=== PATIENT | female | born 1975 | race Caucasian/White ===

== ENCOUNTER 2017-05-30 17:58 | Emergency (ER) | payer OTHER ==
[2017-05-30 18:16] VITALS: BP 108/64; PULSE 84; RESP 18; TEMP 98.2
[2017-05-30] MEDS ORDERED: DIPH,PERTUS(ACELL)TETVAC-LF 0.5 ML VIAL IM ONE (19:46)
--- NOTE | 2017-05-30 20:45 | ED ---
Wound/Laceration HPI - General Chief Complaint: Wound/Laceration Stated Complaint: Finger Laceration Time Seen by Provider: 05/30/17 19:31 Source: patient, RN notes reviewed Mode of arrival: ambulatory Limitations: no limitations - History of Present Illness Initial Comments: This is a 41-year-old female who presents to the emergency department with chief complaint of left index finger laceration. Patient states that prior to arrival she was cutting potatoes with a paring knife when she slipped and lacerated her left index finger. Patient states that she is in mild pain. There was minimal bleeding. Patient states she is unsure if she is up-to-date with her tetanus vaccination. Denies fever, chills, chest pain, shortness of breath, abdominal pain, nausea or vomiting, constipation or diarrhea, dysuria or hematuria, numbness or tingling, headache or vision changes. - Related Data Home Medications Medication Instructions Recorded Confirmed No Known Home Medications [No 05/30/17 05/30/17 Known Home Medications] Allergies Allergy/AdvReac Type Severity Reaction Status Date / Time latex Allergy Rash/Hives Verified 05/30/17 18:14 Review of Systems ROS Statement: Those systems with pertinent positive or pertinent negative responses have been documented in the HPI. ROS Other: All systems not noted in ROS Statement are negative. Past Medical History Past Medical History: No Reported History History of Any Multi-Drug Resistant Organisms: None Reported Past Surgical History: No Surgical Hx Reported Past Psychological History: No Psychological Hx Reported Smoking Status: Current every day smoker Past Alcohol Use History: Occasional Past Drug Use History: None Reported General Exam - General Exam Comments Initial Comments: General: Awake and alert, well-developed; in no apparent distress. HEENT: Head atraumatic, normocephalic. Pupils are equal, round and reactive to light. Extraocular movements intact. Neck: Supple. Normal ROM. Cardiovascular: Regular rate and rhythm. No murmurs, rubs or gallops. Chest symmetrical. Respiratory: Lungs clear to auscultation bilaterally. No wheezes, rales or rhonchi. Normal respiratory effort with no use of accessory muscles. Skin: [place], warm and dry without rashes or lesions. 2 cm crescent-shaped laceration at distal tip of left index finger. Sensation is intact. Pulses are 2+ equal and palpable bilaterally. Active range of motion is intact. Neurological: Alert and oriented x3. CN II-XII grossly intact. Speech is fluent and answers are appropriate. No focal neuro deficits. Psychiatric: Normal mood and affect. No overt signs of depression or anxiety noted. Limitations: no limitations Course Vital Signs 05/30/17 18:15 Temperature 98.2 F Pulse Rate 84 Respiratory 18 Rate Blood Pressure 108/64 O2 Sat by Pulse 98 Oximetry Procedures - Laceration Laceration #1 Consent Obtained: verbal consent Indication: laceration Site: hand (distal left index finger) Size (cm): 2 Description: flap Depth: simple, single layer Anesthetic Used: lidocaine 1% Anesthesia Technique: nerve block (digitial nerve block) Amount (mls): 3 Pre-repair: wound explored, irrigated extensively, deep structures intact Type of Sutures: nylon Size of Sutures: 4-0 Number of Sutures: 5 Technique: simple, interrupted Complications: bleeding (moderate amount of bleeding. controlled once sutures were in place. ) Patient Tolerated Procedure: well, no complications Medical Decision Making - Medical Decision Making This is a 41-year-old female who presents to the emergency department with chief complaint of left index finger laceration. Laceration was irrigated extensively and 5 sutures were placed. Patient tolerated the procedure well. She was given an up-to-date tetanus booster in the ED. Patient is in no acute distress at this time and will be discharged home with recommendation to have sutures removed in 10-14 days here at the ED or with her primary care provider. Patient is in agreement with the plan and voices understanding. All questions were answered. Disposition Clinical Impression: Laceration of left index finger Disposition: HOME SELF-CARE Condition: Good Instructions: Laceration (ED) Additional Instructions: Please have sutures removed here at the ED or with her primary care provider in 10-14 days. Please monitor for any signs of infection including redness, warmth or increased tenderness. May take Ibuprofen or Tylenol as needed for pain. Please follow up with primary care provider within 1-2 days. Return to emergency department if symptoms should worsen or any concerns arise. Referrals: Garo Mccartney MD [Primary Care Provider] - 1-2 days Time of Disposition: 20:29
== END 2017-05-30 20:42 | disposition home or self-care (01) ==
LOC: EC 17:58
DX: S61.211A Laceration without foreign body of left index finger without damage to nail, initial encounter (principal); F17.200 Nicotine dependence, unspecified, uncomplicated; Z91.040 Latex allergy status; Z23 Encounter for immunization; W26.0XXA Contact with knife, initial encounter; Y93.89 Activity, other specified
CPT/HCPCS: 12001; 90471; 90715; 99282

== ENCOUNTER 2018-08-12 05:02 | Emergency (ER) | payer OTHER ==
[2018-08-12 05:09] VITALS: BP 131/85; PULSE 77; RESP 18; TEMP 98.2
[2018-08-12] MEDS ORDERED: PENICILLIN V POTASSIUM 250 MG TAB PO STA (05:15)
--- NOTE | 2018-08-12 05:16 | ED ---
ENT HPI - General Chief complaint: Dental/Oral Stated complaint: Dental Pain Time Seen by Provider: 08/12/18 05:15 Source: patient Mode of arrival: ambulatory Limitations: no limitations - History of Present Illness Initial comments: Adam is a previously healthy 43-year-old female who presents the emergency department today for evaluation of dental pain and swelling. Patient reports she has a history of multiple dental fractures and dental caries, she has had dental infections require dental extraction the past. She reports she woke with Monday morning with swelling and pain in her left upper tooth. She reports that throughout the day the pain has worsened and she knows she needs antibiotics so she came to the ER for evaluation. She denies associated fevers , chills, chest pain or shortness of breath. - Related Data Previous Rx's Medication Instructions Recorded RX: Penicillin V Potassium [Pen 500 mg PO Q6H #28 tablet 08/12/18 Vee K] Allergies Allergy/AdvReac Type Severity Reaction Status Date / Time latex Allergy Rash/Hives Verified 08/12/18 05:09 Review of Systems ROS Statement: Those systems with pertinent positive or pertinent negative responses have been documented in the HPI. ROS Other: All systems not noted in ROS Statement are negative. Past Medical History Past Medical History: No Reported History History of Any Multi-Drug Resistant Organisms: None Reported Past Surgical History: Tubal Ligation Past Psychological History: No Psychological Hx Reported Smoking Status: Current every day smoker Past Alcohol Use History: Occasional Past Drug Use History: None Reported General Exam - General Exam Comments Initial Comments: Physical Exam GENERAL: Patient is well-developed and well-nourished. Patient is nontoxic and well- hydrated and is in no distress. HENT: Swelling of left cheek, poor dentition, mutliple caries and dental fractures No parotid gland swelling or tenderness No cervical lymphadenopathy EYES: PERRL, EOMI PULMONARY: Unlabored respirations. No audible rales rhonchi or wheezing was noted. CARDIOVASCULAR: There is a regular rate and rhythm without any murmurs gallops or rubs. ABDOMEN: Soft and nontender with normal bowel sounds. SKIN: Skin is clear with no lesions or rashes and otherwise unremarkable. : Deferred NEUROLOGIC: Patient is alert and oriented x3. Moving all extremities spontaneously MUSCULOSKELETAL: Normal extremities with adequate strength and full range of motion. No lower extremity swelling or edema. No calf tenderness. PSYCHIATRIC: Normal psychiatric evaluation. Limitations: no limitations Limitations: no limitations Course Vital Signs 08/12/18 05:06 Temperature 98.2 F Pulse Rate 77 Respiratory 18 Rate Blood Pressure 131/85 O2 Sat by Pulse 100 Oximetry Medical Decision Making - Medical Decision Making Patient with poor dentition and multiple dental caries and fractured teeth, presenting with acute swelling and pain around tooth #17. We'll give first dose of antibiotics in the emergency department discharge patient home with penicillin. Return parameters were discussed with questions pertaining care were answered the need for follow-up with waxer operator was discussed and the patient was discharged home in stable condition. Disposition Clinical Impression: Dental caries, Dental abscess, Fracture of tooth Disposition: HOME SELF-CARE Condition: Good Instructions: Dental Abscess (ED), Dental Caries (ED) Prescriptions: RX: Penicillin V Potassium [Pen Vee K] 500 mg PO Q6H #28 tablet Is patient prescribed a controlled substance at d/c from ED?: No Referrals: Garo Mccartney MD [Primary Care Provider] - 1-2 days Time of Disposition: 05:58
== END 2018-08-12 06:02 | disposition home or self-care (01) ==
LOC: EC 05:02
DX: S02.5XXA Fracture of tooth (traumatic), initial encounter for closed fracture (principal); K04.7 Periapical abscess without sinus; K02.9 Dental caries, unspecified; F17.200 Nicotine dependence, unspecified, uncomplicated; Z91.040 Latex allergy status
CPT/HCPCS: 99282

== ENCOUNTER → 2018-11-30 | Outpatient (CLI) | payer OTHER ==
--- NOTE | 2018-12-01 08:49 | US ---
EXAMINATION TYPE: US pelvis complete transvag DATE OF EXAM: 11/30/2018 COMPARISON: NONE CLINICAL HISTORY: 43-year-old female N92.0 frequent menstruation. Pt states heavy menses with large c lots TECHNIQUE: Transabdominal sonographic images of the pelvis were acquired. Transvaginal sonographic i mages were medically necessary to better assess the following anatomy: Uterus, endo, and ovaries Date of LMP: 11/06/2018 FINDINGS: EXAM MEASUREMENTS: Uterus: 9.0 x 4.5 x 5.8cm Endometrial Stripe: 1.0 cm Right Ovary: 4.2 x 3.1 x 3.5 cm Left Ovary: 3.9 x 2.1 x 2.5 cm 1. Uterus: Retroverted. Possible 8mm scar niche along the anterior lower uterine segment at the expected scar site. Nabothian cysts in cervix. There is a heterogeneous ill-defined r ounded area along the anterior uterine fundus which indents into the endometrial stripe. There is ass ociated vascularity. The area measures 2.1 x 1.7 x 2.4 cm 2. Endometrium: wnl 3. Right Ovary: two complex lesions with septations and debris 1)= 2.1 x 1.9 x 2.2 cm 2)= 2.2 x 1. 6 x 2.2 cm. Possible hemorrhagic cysts. 4. Left Ovary: two complex lesions 1)= 1.9 x 2.0 x 1.4 cm 2)= 2.1 x 1.2 x 1.4 cm. Both of these s how extensive internal reticulation suggesting hemorrhagic cysts. 5. Bilateral Adnexa: Small amount of fluid left adnexa adjacent to left ovary 6. Posterior cul-de-sac: wnl IMPRESSION: 1. Retroverted uterus with a possible 8 mm scar niche. 2. Poorly defined 2.4 cm heterogeneous area along the anterior uterine fundus is myometrial and show some encroachment onto the endometrial stripe. Differential considerations include intramural and par tially submucosal fibroid and adenomyoma. Consider female pelvic MRI if indicated. 3. Complex cystic lesions in both ovaries measuring up to 2.2 cm. These show debris and internal reti culations. Hemorrhagic cysts are suspected. Follow-up in 6-8 weeks to reassess. 4. Small amount of left adnexal free fluid adjacent to the ovary.
== END | disposition home or self-care (01) ==
LOC: RADUSWWP 16:10
PROVIDERS: ATTEND Family Medicine
DX: N85.4 Malposition of uterus (principal); N83.291 Other ovarian cyst, right side; N83.292 Other ovarian cyst, left side; D25.9 Leiomyoma of uterus, unspecified; D26.9 Other benign neoplasm of uterus, unspecified
CPT/HCPCS: 76830; 76856

== ENCOUNTER → 2018-12-13 | Outpatient (CLI) | payer OTHER ==
--- NOTE | 2018-12-14 11:50 | MM ---
Reason for exam: screening (asymptomatic). Last mammogram was performed 4 years and 3 months ago. History: Family history of breast cancer in 2 maternal cousins. Physical Findings: A clinical breast exam by your physician is recommended on an annual basis and results should be correlated with mammographic findings. MG Screening Mammo w CAD Bilateral CC and MLO view(s) were taken. Prior study comparison: September 25, 2014, bilateral MG diagnostic mammo w CAD YARED. The breast tissue is heterogeneously dense. This may lower the sensitivity of mammography. Finding: There is an equal density (isodense), indistinct irregular mass in the outer quadrant, middle position of the left breast on CC view. New finding since September 25, 2014. ASSESSMENT: Incomplete: need additional imaging evaluation, BI-RAD 0 RECOMMENDATION: Special view mammogram of the left breast. If lesion persists on supplemental views, image directed ultrasound is recommended. [facility] will attempt to contact patient to return for supplemental views and ultrasound if indicated.
== END | disposition home or self-care (01) ==
LOC: RADMAMWWP 07:14
PROVIDERS: ATTEND Family Medicine
DX: Z12.31 Encounter for screening mammogram for malignant neoplasm of breast (principal)
CPT/HCPCS: 77067

== ENCOUNTER → 2018-12-24 | Outpatient (CLI) | payer OTHER ==
--- NOTE | 2018-12-24 09:53 | MM ---
Reason for exam: additional evaluation requested from abnormal screening. Last mammogram was performed less than 1 month ago. History: Family history of breast cancer in 2 maternal cousins at age 50. Physical Findings: Nurse did not find any significant physical abnormalities on exam. MG 3D Work Up W/Cad LT Spot compression CC, spot compression MLO, and ML view(s) were taken of the left breast. Prior study comparison: December 13, 2018, bilateral MG screening mammo w CAD. September 25, 2014, bilateral MG diagnostic mammo w CAD YARED. The breast tissue is heterogeneously dense. This may lower the sensitivity of mammography. The questioned lateral asymmetric density does not persist. These results were verbally communicated with the patient and result sheet given to the patient on 12/24/18. ASSESSMENT: Negative, BI-RAD 1 RECOMMENDATION: Return to routine screening mammogram schedule for both breasts.
== END | disposition home or self-care (01) ==
LOC: RADMAMWWP 08:58
PROVIDERS: ATTEND Family Medicine
DX: R92.8 Other abnormal and inconclusive findings on diagnostic imaging of breast (principal)
CPT/HCPCS: 77061; 77065

== ENCOUNTER → 2018-12-24 | Outpatient (CLI) | payer OTHER ==
[2018-12-24 10:10] LABS: Basophils % (A) 0 %; Eosinophils # (A) 0.1 k/uL (0-0.7); Eosinophils % (A) 1 %; HCT 45.6 % (34.0-46.0); HGB 14.3 gm/dL (11.4-16.0); Lymphocytes # (A) 1.5 k/uL (1.0-4.8); Lymphocytes % (A) 19 %; MCH 30.5 pg (25.0-35.0); MCHC 31.3 g/dL (31.0-37.0); MCV 97.4 fL (80.0-100.0); Mean Platelet Volume 9.5; Monocytes # (A) 0.4 k/uL (0-1.0); Monocytes % (A) 5 %; Neutrophils # (A) 5.7 k/uL (1.3-7.7); Neutrophils % (A) 74 %; Platelet Count 227 k/uL (150-450); RBC 4.67 m/uL (3.80-5.40); RDW 13.7 % (11.5-15.5); WBC 7.7 k/uL (3.8-10.6)
[2018-12-24 16:10] LABS: Albumin 4.6 g/dL (3.80-4.90); Albumin/Globulin Ratio 2.19 (1.60-3.17); Anion Gap 2.5 mmol/L (4.00-12.00); Calcium 9.4 mg/dL (8.7-10.3); Carbon Dioxide 25.5 mmol/L (21.6-31.8); Globulin 2.1 g/dL (1.6-3.3); Potassium 4.3 mmol/L (3.5-5.5); Total Bilirubin 0.7 mg/dL (0.3-1.2); Total Protein 6.7 g/dL (6.2-8.2)
[2018-12-24 16:22] LABS: Progesterone 0.7 ng/mL
[2018-12-24 19:43] LABS: Hemoglobin A1C 5.5 % (4.0-6.0)
== END ==
LOC: LABWHC1 09:42
PROVIDERS: ATTEND Obstetrics & Gynecology Obstetrics
DX: N92.1 Excessive and frequent menstruation with irregular cycle (principal); R10.2 Pelvic and perineal pain
CPT/HCPCS: 36415; 80053; 82670; 83001; 83036; 84144; 84146; 84443; 85025

== ENCOUNTER 2019-06-14 13:02 | Emergency (ER) | payer OTHER ==
[2019-06-14 13:12] VITALS: RESP 18
[2019-06-14] MEDS ORDERED: KETOROLAC 30 MG/ML 1 ML VIAL IVP STA (13:28)
--- NOTE | 2019-06-14 13:45 | ED ---
Chest Pain HPI - General Chief Complaint: Chest Pain Stated Complaint: Chest pain Time Seen by Provider: 06/14/19 13:14 Source: patient Mode of arrival: wheelchair Limitations: no limitations - History of Present Illness Initial Comments: Patient is a 43-year-old female presenting to emergency Department with complaints of chest pain 2 days. Patient describes the pain as more left sided, intermittent in nature, described as burning/sharp, increases with movement and palpation. She did take some Motrin today which did alleviate some of the pain. Patient states she's never had pain like this before. Patient denies any injuries or trauma to her chest. Patient denies cardiac history. Patient does admit to being a smoker. Takes no daily medications. Patient was recently on a course of antibiotics and steroids for URI. Patient denies fever, chills, nausea, vomiting, diarrhea, shortness of breath. Patient has no other complaints at this time. Upon arrival to ER, vital signs are stable. - Related Data Previous Rx's Medication Instructions Recorded Penicillin V Potassium [Pen Vee K] 500 mg PO Q6H #28 tablet 08/12/18 Allergies Allergy/AdvReac Type Severity Reaction Status Date / Time latex Allergy Rash/Hives Verified 06/14/19 13:08 Review of Systems ROS Statement: Those systems with pertinent positive or pertinent negative responses have been documented in the HPI. ROS Other: All systems not noted in ROS Statement are negative. EKG Findings - EKG Comments: EKG Findings:: Ventricular rate 81, KS interval 156, QTC 420. Normal sinus rhythm. No acute ST segment changes. Past Medical History Past Medical History: No Reported History History of Any Multi-Drug Resistant Organisms: None Reported Past Surgical History: Tubal Ligation Past Psychological History: No Psychological Hx Reported Smoking Status: Current every day smoker Past Alcohol Use History: Occasional Past Drug Use History: None Reported General Exam - General Exam Comments Initial Comments: GENERAL: Well-appearing, well-nourished and in no acute distress. HEAD: Atraumatic, normocephalic. EYES: Pupils equal round and reactive to light, extraocular movements intact, sclera anicteric, conjunctiva are normal. ENT: TMs normal, nares patent, oropharynx clear without exudates. Moist mucous membranes. NECK: Normal range of motion, supple without lymphadenopathy or JVD. LUNGS: Breath sounds clear to auscultation bilaterally and equal. No wheezes rales or rhonchi. HEART: Regular rate and rhythm without murmurs, rubs or gallops. Pain with palpation of the sternum and left chest, over her breast. No overlying erythema or bruising. No swelling. ABDOMEN: Soft, nontender, normoactive bowel sounds. No guarding, no rebound. No masses appreciated. : Deferred EXTREMITIES: Normal range of motion, no pitting or edema. No clubbing or cyanosis. NEUROLOGICAL: Cranial nerves II through XII grossly intact. Normal speech, normal gait. PSYCH: Normal mood, normal affect. SKIN: Warm, Dry, normal turgor, no rashes or lesions noted. Limitations: no limitations Course Vital Signs 06/14/19 06/14/19 13:08 15:37 Temperature 97.8 F 98.1 F Pulse Rate 95 79 Respiratory 18 18 Rate Blood Pressure 130/92 101/73 O2 Sat by Pulse 97 100 Oximetry Chest [facility] Patient is a 43-year-old female presenting with chest pain 2 days. Patient denies cardiac history, isn't every day smoker. Patient takes no other medications. Patient's exam reveals tenderness with palpation of the left chest as well as sternum. Rest of exam is unremarkable. EKG shows no acute changes. CBC, coags, CMP are all within normal limits. Troponin is normal. UA is normal. Chest x-ray shows no acute processes. Patient was given Toradol with improvement in symptoms. Discussed with patient this is most likely costochondritis. Should she continue with anti-inflammatories and may also use ice or heat packs for symptom control. Patient is in agreement with this plan of care. Patient will follow up with her PCP on Monday if symptoms persist. Strict return parameters were discussed with the patient such as increasing chest pain, shortness of breath, left arm numbness, and she verbalized understanding. Case discussed with Dr. Allen who agrees with this plan of care. Disposition Clinical Impression: Atypical chest pain, Costochondritis Disposition: HOME SELF-CARE Condition: Stable Instructions (If sedation given, give patient instructions): Costochondritis (ED) Additional Instructions: Please return to the Emergency Department if symptoms worsen or any other concerns. Continue with Motrin as discussed. May use ice for symptom relief. Follow-up with PCP in 3-5 days if symptoms persist. Is patient prescribed a controlled substance at d/c from ED?: No Referrals: None,Stated [REFERRING] - 1-2 days Martha Veronica MD [REFERRING] - 1-2 days
--- NOTE | 2019-06-14 14:10 | XR ---
EXAMINATION TYPE: XR chest 2V DATE OF EXAM: 06/14/2019 COMPARISON: 07/14/2010 INDICATION: Chest pain TECHNIQUE: Frontal and lateral views of the chest are obtained. FINDINGS: The heart size is normal. The pulmonary vasculature is normal. The lungs are clear. IMPRESSION: 1. No acute pulmonary process.
[2019-06-14 14:14] LABS: Appearance,Urine Clear (Clear); Bacteria,Urine Occasional /hpf; Bilirubin,Urine Negative (Negative); Blood,Urine Large (Negative); Color,Urine Light Yellow; Glucose,Urine (UA) Negative (Negative); Ketones,Urine Negative (Negative); Leukocyte Esterase,Urine Moderate (Negative); Mucus,Urine Rare /hpf; Nitrite,Urine Negative (Negative); PH, Urine 5.5 (5.0-8.0); Protein,Urine Negative (Negative); RBC,Urine 8 /hpf (0-5); Specific Gravity,Urine 1.005 (1.001-1.035); Squamous Epithelial Cell,Urine 1 /hpf (0-4); Urobilinogen,Urine <2.0 mg/dL (<2.0)
[2019-06-14 14:18] LABS: Basophils % (A) 0 %; Eosinophils # (A) 0.1 k/uL (0-0.7); Eosinophils % (A) 1 %; HCT 43.4 % (34.0-46.0); HGB 14.5 gm/dL (11.4-16.0); Lymphocytes # (A) 1.2 k/uL (1.0-4.8); Lymphocytes % (A) 16 %; MCH 32.4 pg (25.0-35.0); MCHC 33.5 g/dL (31.0-37.0); MCV 96.7 fL (80.0-100.0); Mean Platelet Volume 9.2; Monocytes # (A) 0.4 k/uL (0-1.0); Monocytes % (A) 5 %; Neutrophils % (A) 77 %; Platelet Count 212 k/uL (150-450); RBC 4.49 m/uL (3.80-5.40); RDW 12.5 % (11.5-15.5); WBC 7.8 k/uL (3.8-10.6)
[2019-06-14 14:24] LABS: Partial Thromboplastin Time 24.2 sec (22.0-30.0); Prothrombin Time 10.4 sec (9.0-12.0)
[2019-06-14 14:25] LABS: ALT 16 U/L (9-52); AST 21 U/L (14-36); African American GFR (CKD) >90 (>60 ml/min/1.73 sqM); Albumin 4.6 g/dL (3.5-5.0); Alkaline Phosphatase 51 U/L (38-126); Anion Gap 10 mmol/L; Blood Urea Nitrogen 9 mg/dL (7-17); Calcium 9.8 mg/dL (8.4-10.2); Carbon Dioxide 24 mmol/L (22-30); Chloride 109 mmol/L (98-107); Glucose 71 mg/dL (74-99); Magnesium 2.1 mg/dL (1.6-2.3); Potassium 3.9 mmol/L (3.5-5.1); Sodium 143 mmol/L (137-145); Total Bilirubin 0.6 mg/dL (0.2-1.3); Total Protein 7.6 g/dL (6.3-8.2)
[2019-06-14 15:37] VITALS: BP 101/73; PULSE 79; TEMP 98.1
== END 2019-06-14 15:37 | disposition home or self-care (01) ==
LOC: EC 13:02
DX: M94.0 Chondrocostal junction syndrome [Tietze] (principal); F17.200 Nicotine dependence, unspecified, uncomplicated; Z91.040 Latex allergy status
CPT/HCPCS: 36415; 93005; 80053; 83735; 84484; 85025; 85610; 85730; 81001; 71046; 99285; 96374; J1885

== ENCOUNTER 2019-08-31 05:38 | Emergency (ER) | payer OTHER ==
[2019-08-31 05:49] VITALS: BP 132/85; PULSE 99; RESP 18; TEMP 97.6
--- NOTE | 2019-08-31 05:54 | ED ---
Neck Injury/Pain HPI - General Chief Complaint: Neck Pain/Injury Stated Complaint: Neck Pain Time Seen by Provider: 08/31/19 05:54 Source: RN notes reviewed, old records reviewed Mode of arrival: ambulatory Limitations: no limitations - History of Present Illness Initial Comments: This is a 44-year-old female here for evaluation of neck pain bilateral neck pain and right-sided neck tenderness. Patient's of chiropractor 2 days ago with no. Symptoms all week. No trauma noted no fevers, some tingling in her right hand but no numbness currently in no tingling currently. There is some tingling in her right elbow. Otherwise no exacerbating causes of patient's symptoms. Patient has taken Motrin and Tylenol with no help. Is instructed pain medica tion. Again denies trauma or fever MD Complaint: neck pain -: week(s) Place: home Radiation: right lateral, right shoulder, right upper extremity Severity: mild, similar to prior neck pain Severity scale (1-10): 3 Quality: aching Consistency: constant Improves With: none Worsens With: none Associated Symptoms: none Treatments Prior to Arrival: none - Related Data Previous Rx's Medication Instructions Recorded Penicillin V Potassium [Pen Vee K] 500 mg PO Q6H #28 tablet 08/12/18 Allergies Allergy/AdvReac Type Severity Reaction Status Date / Time latex Allergy Rash/Hives Verified 08/31/19 05:49 Review of Systems ROS Statement: Those systems with pertinent positive or pertinent negative responses have been documented in the HPI. ROS Other: All systems not noted in ROS Statement are negative. Past Medical History Past Medical History: No Reported History History of Any Multi-Drug Resistant Organisms: None Reported Past Surgical History: Tubal Ligation Past Psychological History: No Psychological Hx Reported Smoking Status: Current every day smoker Past Alcohol Use History: Occasional Past Drug Use History: None Reported General Exam Limitations: no limitations General appearance: alert, in no apparent distress Head exam: Present: atraumatic, normocephalic, normal inspection Eye exam: Present: normal appearance, PERRL, EOMI. Absent: scleral icterus, conjunctival injection, periorbital swelling ENT exam: Present: normal exam, mucous membranes moist Neck exam: Present: normal inspection. Absent: tenderness, meningismus, lymphadenopathy Respiratory exam: Present: normal lung sounds bilaterally. Absent: respiratory distress, wheezes, rales, rhonchi, stridor Cardiovascular Exam: Present: regular rate, normal rhythm, normal heart sounds. Absent: systolic murmur, diastolic murmur, rubs, gallop, clicks GI/Abdominal exam: Present: soft, normal bowel sounds. Absent: distended, tenderness, guarding, rebound, rigid Extremities exam: Present: normal inspection, full ROM, normal capillary refill. Absent: tenderness, pedal edema, joint swelling, calf tenderness Back exam: Present: normal inspection Neurological exam: Present: alert, oriented X3, CN II-XII intact Psychiatric exam: Present: normal affect, normal mood Skin exam: Present: warm, dry, intact, normal color. Absent: rash Course Vital Signs 08/31/19 05:47 Temperature 97.6 F Pulse Rate 99 Respiratory 18 Rate Blood Pressure 132/85 O2 Sat by Pulse 99 Oximetry - Reevaluation(s) Reevaluation #1: 08/31/19 06:29 Medical records reviewed Reevaluation #2: 08/31/19 06:30 Patient's pain is currently controlled Medical Decision Making - Medical Decision Making 44 female here for evaluation patient is significantly pain neck pain. Patient is resolved here in the ER and she'll be discharged Disposition Clinical Impression: Strain of neck muscle, Acute torticollis Disposition: HOME SELF-CARE Condition: Good Instructions (If sedation given, give patient instructions): Cervical Sprain (ED), Cervical Strain (ED) Is patient prescribed a controlled substance at d/c from ED?: No Referrals: Nonstaff,Physician [REFERRING] - 1-2 days
[2019-08-31] MEDS ORDERED: Acetaminophen-Codeine 300-30mg TAB PO STA (06:04)
[2019-08-31] MEDS ORDERED: DEXAMETHASONE 4 MG TAB PO STA (06:04)
[2019-08-31] MEDS ORDERED: ACET/COD 300 MG/30 MG STARTER PACK 6 TAB BTL PO STA (06:04)
[2019-08-31] MEDS ORDERED: ACETAMINOPHEN TAB 325 MG TAB PO STA (06:04)
[2019-08-31] MEDS ORDERED: KETOROLAC 60 MG/2 ML VIAL IM STA (06:04)
[2019-08-31] MEDS ORDERED: DIAZEPAM 5 MG TAB PO STA (06:04)
== END 2019-08-31 06:58 | disposition home or self-care (01) ==
LOC: EC 05:38
DX: S16.1XXA Strain of muscle, fascia and tendon at neck level, initial encounter (principal); F17.200 Nicotine dependence, unspecified, uncomplicated; Z91.040 Latex allergy status; X58.XXXA Exposure to other specified factors, initial encounter
CPT/HCPCS: 99284; 96372; J8540; J1885

== ENCOUNTER 2020-11-16 11:45 | Emergency (ER) | payer OTHER ==
--- NOTE | 2020-11-16 11:52 | ED ---
General Adult HPI - General Source: patient, RN notes reviewed Mode of arrival: ambulatory Limitations: no limitations <Jurgen Maloney - Last Filed: 11/16/20 11:50> <Waylon Lizarraga - Last Filed: 11/16/20 16:03> - General Stated complaint: chest pain Time Seen by Provider: 11/16/20 11:48 - History of Present Illness Initial comments: 45-year-old female presents emergency Department chief complaint left-sided chest pain. Patient states it feels like something is squeezing her on her left side of her chest. Patient states this started this morning. Patient states that symptoms are not getting better she states it does cause pain with deep inspiration no prior cardiac disease. Patient states that she has no family cardiac disease. No recent fevers chills no cough cold like symptoms. (Jurgen Maloney) - Related Data Previous Rx's Medication Instructions Recorded Penicillin V Potassium [Pen Vee K] 500 mg PO Q6H #28 tablet 08/12/18 Allergies Allergy/AdvReac Type Severity Reaction Status Date / Time latex Allergy Rash/Hives Verified 11/16/20 11:48 Review of Systems ROS Other: All systems not noted in ROS Statement are negative. <Jurgen Maloney - Last Filed: 11/16/20 11:50> ROS Other: All systems not noted in ROS Statement are negative. <Waylon Lizarraga - Last Filed: 11/16/20 16:03> ROS Statement: Those systems with pertinent positive or pertinent negative responses have been documented in the HPI. Past Medical History Past Medical History: No Reported History History of Any Multi-Drug Resistant Organisms: None Reported Past Surgical History: Tubal Ligation Past Psychological History: No Psychological Hx Reported Past Alcohol Use History: Occasional Past Drug Use History: None Reported <Jurgen Maloney - Last Filed: 11/16/20 11:50> General Exam General appearance: alert, in no apparent distress Head exam: Present: atraumatic, normocephalic, normal inspection Eye exam: Present: normal appearance, PERRL, EOMI. Absent: scleral icterus, conjunctival injection, periorbital swelling Respiratory exam: Present: normal lung sounds bilaterally. Absent: respiratory distress, wheezes, rales, rhonchi, stridor Cardiovascular Exam: Present: regular rate, normal rhythm, normal heart sounds. Absent: systolic murmur, diastolic murmur, rubs, gallop, clicks <Jurgen Maloney - Last Filed: 11/16/20 11:50> Course Vital Signs 11/16/20 11:48 Temperature 98 F Pulse Rate 89 Respiratory 18 Rate Blood Pressure 163/97 O2 Sat by Pulse 100 Oximetry Medical Decision Making - Lab Data Result diagrams: 11/16/20 11:56 11/16/20 11:56 <Waylon Lizarraga - Last Filed: 11/16/20 16:03> - Medical Decision Making Chest x-ray negative for infiltrates lung spaces are clear there is no acute process. Oxygen saturation 100% on room air patient well-appearing. Patient denies medication history or surgical history, only risk factor is cigarette smoking. WBC count is 5.4, troponin 0.012, all other labs within normal limits. Patient will be directed to follow up with primary care doctor within 1 week. Patient offered Toradol for pain and she refused. Case discussed with Dr. Allen who is agreeable with this plan of care. (Waylon Lizarraga) - Lab Data Lab Results 11/16/20 11/16/20 11/16/20 Range/Units 11:56 11:56 11:56 WBC 5.4 (3.8-10.6) k/uL RBC 4.69 (3.80-5.40) m/uL Hgb 15.5 (11.4-16.0) gm/dL Hct 44.5 (34.0-46.0) % MCV 94.8 (80.0-100.0) fL MCH 33.0 (25.0-35.0) pg MCHC 34.8 (31.0-37.0) g/dL RDW 12.7 (11.5-15.5) % Plt Count 194 (150-450) k/uL MPV 10.5 Neutrophils % 66 % Lymphocytes % 27 % Monocytes % 5 % Eosinophils % 2 % Basophils % 1 % Neutrophils # 3.5 (1.3-7.7) k/uL Lymphocytes # 1.4 (1.0-4.8) k/uL Monocytes # 0.3 (0-1.0) k/uL Eosinophils # 0.1 (0-0.7) k/uL Basophils # 0.0 (0-0.2) k/uL PT 10.7 (9.0-12.0) sec INR 1.0 (<1.2) APTT 25.5 (22.0-30.0) sec Sodium 141 (137-145) mmol/L Potassium 4.0 (3.5-5.1) mmol/L Chloride 107 (98-107) mmol/L Carbon Dioxide 27 (22-30) mmol/L Anion Gap 7 mmol/L BUN 11 (7-17) mg/dL Creatinine 0.71 (0.52-1.04) mg/dL Est GFR (CKD-EPI)AfAm >90 (>60 ml/min/1.73 sqM) Est GFR (CKD-EPI)NonAf >90 (>60 ml/min/1.73 sqM) Glucose 109 H (74-99) mg/dL Calcium 9.7 (8.4-10.2) mg/dL Magnesium 2.0 (1.6-2.3) mg/dL Total Bilirubin 0.5 (0.2-1.3) mg/dL AST 24 (14-36) U/L ALT 15 (4-34) U/L Alkaline Phosphatase 55 (38-126) U/L Troponin I (0.000-0.034) ng/mL Total Protein 7.8 (6.3-8.2) g/dL Albumin 4.7 (3.5-5.0) g/dL 11/16/20 Range/Units 11:56 WBC (3.8-10.6) k/uL RBC (3.80-5.40) m/uL Hgb (11.4-16.0) gm/dL Hct (34.0-46.0) % MCV (80.0-100.0) fL MCH (25.0-35.0) pg MCHC (31.0-37.0) g/dL RDW (11.5-15.5) % Plt Count (150-450) k/uL MPV Neutrophils % % Lymphocytes % % Monocytes % % Eosinophils % % Basophils % % Neutrophils # (1.3-7.7) k/uL Lymphocytes # (1.0-4.8) k/uL Monocytes # (0-1.0) k/uL Eosinophils # (0-0.7) k/uL Basophils # (0-0.2) k/uL PT (9.0-12.0) sec INR (<1.2) APTT (22.0-30.0) sec Sodium (137-145) mmol/L Potassium (3.5-5.1) mmol/L Chloride (98-107) mmol/L Carbon Dioxide (22-30) mmol/L Anion Gap mmol/L BUN (7-17) mg/dL Creatinine (0.52-1.04) mg/dL Est GFR (CKD-EPI)AfAm (>60 ml/min/1.73 sqM) Est GFR (CKD-EPI)NonAf (>60 ml/min/1.73 sqM) Glucose (74-99) mg/dL Calcium (8.4-10.2) mg/dL Magnesium (1.6-2.3) mg/dL Total Bilirubin (0.2-1.3) mg/dL AST (14-36) U/L ALT (4-34) U/L Alkaline Phosphatase (38-126) U/L Troponin I <0.012 (0.000-0.034) ng/mL Total Protein (6.3-8.2) g/dL Albumin (3.5-5.0) g/dL Disposition <Jurgen Maloney - Last Filed: 11/16/20 11:50> Is patient prescribed a controlled substance at d/c from ED?: No Time of Disposition: 16:00 <Waylon Lizarraga - Last Filed: 11/16/20 16:03> Clinical Impression: Rib pain on left side Disposition: HOME SELF-CARE Condition: Fair Instructions (If sedation given, give patient instructions): Chest Pain (ED) Additional Instructions: Increase fluids, Motrin as needed for pain, follow-up with your primary care doctor in 1 week. return to the emergency room if increased pain or shortness of breath. Referrals: Paz Vo DO [Primary Care Provider] - 1-2 days
--- NOTE | 2020-11-16 12:26 | XR ---
EXAMINATION TYPE: XR chest 2V DATE OF EXAM: 11/16/2020 COMPARISON: 06/14/2019 HISTORY: 45-year-old female with chest pain TECHNIQUE: PA and lateral views FINDINGS: The cardiomediastinal silhouette, aorta, and pulmonary vasculature are within normal limits. Lungs an d pleural spaces are clear. IMPRESSION: No acute cardiopulmonary process.
[2020-11-16 12:28] LABS: Basophils % (A) 1 %; Eosinophils # (A) 0.1 k/uL (0-0.7); Eosinophils % (A) 2 %; HCT 44.5 % (34.0-46.0); HGB 15.5 gm/dL (11.4-16.0); Lymphocytes # (A) 1.4 k/uL (1.0-4.8); Lymphocytes % (A) 27 %; MCHC 34.8 g/dL (31.0-37.0); MCV 94.8 fL (80.0-100.0); Mean Platelet Volume 10.5; Monocytes # (A) 0.3 k/uL (0-1.0); Monocytes % (A) 5 %; Neutrophils # (A) 3.5 k/uL (1.3-7.7); Neutrophils % (A) 66 %; Platelet Count 194 k/uL (150-450); RBC 4.69 m/uL (3.80-5.40); RDW 12.7 % (11.5-15.5); WBC 5.4 k/uL (3.8-10.6)
[2020-11-16 12:39] LABS: Partial Thromboplastin Time 25.5 sec (22.0-30.0); Prothrombin Time 10.7 sec (9.0-12.0)
[2020-11-16 12:58] LABS: ALT 15 U/L (4-34); AST 24 U/L (14-36); African American GFR (CKD) >90 (>60 ml/min/1.73 sqM); Albumin 4.7 g/dL (3.5-5.0); Alkaline Phosphatase 55 U/L (38-126); Anion Gap 7 mmol/L; Blood Urea Nitrogen 11 mg/dL (7-17); Calcium 9.7 mg/dL (8.4-10.2); Carbon Dioxide 27 mmol/L (22-30); Chloride 107 mmol/L (98-107); Glucose 109 mg/dL (74-99); Non-African American GFR(CKD) >90 (>60 ml/min/1.73 sqM); Sodium 141 mmol/L (137-145); Total Bilirubin 0.5 mg/dL (0.2-1.3); Total Protein 7.8 g/dL (6.3-8.2)
[2020-11-16 16:20] VITALS: BP 122/70; PULSE 57; RESP 16; TEMP 97.9
== END 2020-11-16 16:19 | disposition home or self-care (01) ==
LOC: EC 11:45
DX: R07.81 Pleurodynia (principal); F17.200 Nicotine dependence, unspecified, uncomplicated; Z91.040 Latex allergy status; Z98.51 Tubal ligation status
CPT/HCPCS: 36415; 71046; 80053; 83735; 84484; 85025; 85610; 85730; 93005; 99285

== ENCOUNTER → 2021-01-29 | Outpatient (CLI) | payer OTHER ==
--- NOTE | 2021-02-02 09:23 | MM ---
Reason for exam: screening (asymptomatic). Last mammogram was performed 2 years and 1 month ago. History: Family history of breast cancer in 2 maternal cousins at age 50. Took hormonal contraceptives for 6 years. Physical Findings: A clinical breast exam by your physician is recommended on an annual basis and results should be correlated with mammographic findings. MG Screening Mammo w CAD Bilateral CC and MLO view(s) were taken. Prior study comparison: December 13, 2018, bilateral MG screening mammo w CAD. September 25, 2014, bilateral MG diagnostic mammo w CAD [facility]. The breast tissue is heterogeneously dense. This may lower the sensitivity of mammography. Stable lateral asymmetric densities right CC view and superior left MLO view. No significant changes when compared with prior studies. ASSESSMENT: Benign, BI-RAD 2 RECOMMENDATION: Routine screening mammogram of both breasts in 1 year.
== END | disposition home or self-care (01) ==
LOC: RADMAMWWP 06:58
PROVIDERS: ATTEND Family Medicine
DX: Z12.31 Encounter for screening mammogram for malignant neoplasm of breast (principal); Z80.3 Family history of malignant neoplasm of breast
CPT/HCPCS: 77067

== ENCOUNTER 2022-05-13 08:57 | Day surgery (SDC) | payer BC, OTHER ==
[2022-05-11 16:01] VITALS: BMI 25.4
[~2022-05-13 08:57] MED LIST: LACTATED RINGERS 1,000 ML IV SCH
[2022-05-13 09:37] VITALS: RESP 16; TEMP 97.1
[2022-05-13] MEDS ORDERED: LIDOCAINE 1% (10MG/ML) FOR IV START INTRADERMA ONE (09:43)
[2022-05-13] MEDS ORDERED: PROPOFOL 10 MG/ML 20 ML VIAL IV ONE (09:57)
--- NOTE | 2022-05-13 10:18 | P.PCN ---
Date of Procedure: 05/13/22 Procedure(s) Performed: BRIEF HISTORY: Patient is a 46-year-old pleasant white female scheduled for an elective colonoscopy as a part of screening for colon cancer and positive cologuard. PROCEDURE PERFORMED: Colonoscopy snare polypectomy. PREOPERATIVE DIAGNOSIS: Screening for colon cancer and positive cologuard. IV sedation per Anesthesia. PROCEDURE: After informed consent was obtained, the patient, was brought into the endoscopy unit. IV sedation was administered by Anesthesia under continuous monitoring. Digital rectal examination was normal. Initially the Olympus CF-160 flexible video colonoscope was then inserted in the rectum, gradually advanced into the cecum without any difficulty. Careful examination was performed as the scope was gradually being withdrawn. Ileocecal valve and the appendiceal orifice were visualized and appeared normal. Prep was excellent. Mucosa of the cecum, ascending colon, transverse colon, descending colon appeared normal. In the sigmoid: There was a 1 cm polyp removed by snare polypectomy. In the rectosigmoid colon there was a 1 cm pedunculated polyp removed by snare polypectomy. Rest of the, sigmoid colon, and rectum appeared normal. Retroflexion was performed in the rectum and no lesions were seen. The patient tolerated the procedure well. IMPRESSION: 1 cm sigmoid polyp status post polypectomy 1 cm rectosigmoid polyp status post polypectomy RECOMMENDATIONS: Findings of this examination were discussed with the patient is well as her family. She was advised to follow with the biopsy results. If the biopsy reveals adenoma she can have a repeat colonoscopy in 3 years..
[2022-05-13 10:41] VITALS: BP 104/81; PULSE 71
== END 2022-05-13 10:52 | disposition home or self-care (01) ==
LOC: ORWHC2ENDO 08:57
PROVIDERS: ATTEND Internal Medicine Gastroenterology
DX: D12.5 Benign neoplasm of sigmoid colon (principal); D12.7 Benign neoplasm of rectosigmoid junction; Z91.040 Latex allergy status; F17.200 Nicotine dependence, unspecified, uncomplicated; Z79.899 Other long term (current) drug therapy
CPT/HCPCS: 81025; 88305; 45385; J2704

== ENCOUNTER → 2024-09-02 | Outpatient (CLI) | payer BC ==
--- NOTE | 2024-09-02 13:49 | MM ---
Reason for Exam: Screening (asymptomatic). Last mammogram was performed 3 year(s) and 7 month(s) ago. Patient History: Menarche at age 13. First Full-Term at age 17. Perimenopausal. Patient used Hormonal Contraceptives for 6 years. Maternal cousin had breast cancer, age 50. Maternal cousin had breast cancer, age 50. Risk Values: Dori 5 year model risk: 0.7%. NCI Lifetime model risk: 6.6%. Prior Study Comparison: 12/13/2018 Bilateral Screening Mammogram, [facility]. 12/24/2018 Left Diagnostic Mammogram, [facility]. 01/29/2021 Bilateral Screening Mammogram, [facility]. Tissue Density: There are scattered areas of fibroglandular density. Findings: Analyzed By CAD. There is no suspicious group of microcalcifications or new suspicious mass in either breast. Overall Assessment: Negative, BI-RAD 1 Management: Screening Mammogram of both breasts in 1 year. . Patient should continue monthly self-breast exams. A clinical breast exam by your physician is recommended on an annual basis. This exam should not preclude additional follow-up of suspicious palpable abnormalities. Note on Dori scores and lifetime risk: 1. A Dori score greater than 3% is considered moderate risk. If this is the case, consider specialist referral to assess eligibility for a risk reducing agent. 2. If overall lifetime risk for the development of breast cancer is 20% or higher, the patient may qualify for future screening with alternating mammogram and breast MRI. [facility], , 09/02/2024 1:46 PM. Electronically signed and approved by: Peggy Villalobos M.D. Radiologist
== END | disposition home or self-care (01) ==
LOC: RADMAMWWP 09:34
PROVIDERS: ATTEND Family Medicine
DX: Z12.31 Encounter for screening mammogram for malignant neoplasm of breast (principal); Z80.3 Family history of malignant neoplasm of breast; R92.323 Mammographic fibroglandular density, bilateral breasts
CPT/HCPCS: 77067

== ENCOUNTER → 2024-12-19 | Outpatient (CLI) | payer BC ==
--- NOTE | 2024-12-19 15:49 | US ---
EXAMINATION TYPE: US transvaginal DATE OF EXAM: 12/19/2024 COMPARISON: US 2019 CLINICAL INDICATION: Female, 49 years old with history of N92.4 EXCESSIVE BLEEDING IN PREMENOPAUSAL; Patient states no symptoms TECHNIQUE: Transvaginal (TV). FINDINGS: Date of LMP: 2+ years ago EXAM MEASUREMENTS: Uterus: 6.0 x 3.3 x 3.9 cm Endometrial Stripe: 0.2 cm Right Ovary: 2.1 x 1.2 x 1.0 cm Left Ovary: 2.2 x 1.4 x 1.0 cm 1. Uterus: retroverted, heterogeneous, 1.2 x 0.8 x 1.3cm isoechoic vascular area anterior myometrium that appears to indent into endometrium 2. Endometrium: fluid within endo 3. Right Ovary: wnl 4. Left Ovary: wnl 5. Bilateral Adnexa: wnl 6. Posterior cul-de-sac: wnl Retroverted heterogenous uterus with normal thickness endometrium. There is some trace fluid in endom etrium. There is a 1.3 cm isoechoic vascular lesion in the anterior myometrium that appears to indent into the endometrium. Both ovaries appear unremarkable. No free fluid. IMPRESSION: 1. Uterine 1.3 cm lesion that indents upon the endometrium. Favored to represent a submucosal fibroi d versus polyp. Consider direct visualization. 2. Endometrium is normal thickness with trace fluid. [facility], , 12/19/2024 3:47 PM
== END | disposition home or self-care (01) ==
LOC: RADUSWWP 15:00
PROVIDERS: ATTEND Family Medicine
DX: N92.4 Excessive bleeding in the premenopausal period (principal); N85.9 Noninflammatory disorder of uterus, unspecified
CPT/HCPCS: 76830